=== PATIENT | male | born 2000 | race Caucasian/White ===

== ENCOUNTER 2020-08-31 17:31 | Outpatient (REF) | payer OTHER, SELFPAY | END 2020-08-31 17:32 | disposition home or self-care (01) | LOC: HO.LAB 17:31 | PROVIDERS: Visit Provider Internal Medicine | DX: Z20.822 Contact with and (suspected) exposure to COVID-19 (principal) | CPT/HCPCS: 36415; C9803; U0003 ==

== ENCOUNTER 2025-01-24 09:12 | Outpatient (REF) | payer OTHER, SELFPAY ==
--- OUTSIDE RECORDS SUMMARY | 2025-01-24 09:31 | XMS_ITS | Clinical Summary ---
Author Organization [facility]'s Address [address] [place] [id number] Phone Care Team Providers Care Service Delivery Management Consultant Name Role Phone Unavailable Primary Care Provider Unavailabl e Allergies No known active allergies Medications FLUoxetine (PROZAC) 20 MG capsule Take 1 capsule (20 mg total) by mouth every morning. 30 capsule 7 Active methylphenidate LA (RITALIN LA) 30 MG 24 hr capsuleIndications :Attention deficit hyperactivity disorder (ADHD), unspecified ADHD type Take 1 capsule (30 mg total) by mouth every morning. 30 capsule 7 Active melatonin tabletIndications: Attention deficit hyperactivity disorder (ADHD), unspecified ADHD type Take 1 tablet (3 mg total) by mouth nightly. 0 7 Active Active Problems Problem Noted Date Diagnosed Date ADHD (attention deficit hyperactivity disorder) 07/24/2018 BMI, pediatric > 99% for age 1207/24/2018 Immunizations Immunization Administration Dates Next Due DTaP 02/10/2006, 2,01/23/2001,11/21,2000 HPV Vaccine 9 Valent 10/31/2014,06/26/2014,04/29 Hep A, ped/adol 07/24/2018,07/17/2017 Hep B, ped/adol 01/23/2001,2000,2000 HiB 10/30/2001, 1,2000,09/21 IPV 02/10/2006, 2,2000,09/21 Influenza, injectable, quadr ivalent, preservative free 07/24/2018,07/17/2017,07/15/2016,06/15 Influenza, intranasal, quadrivalent 04/29/2014,0 04/15/2013,06/09/2009 MMR 02/10/2006,10/30/2001 Meningococcal Conj (Menactra) MCV4P 07/17/2017,0 02/13/2012 Pneumococcal Conjugate 01/23/2001,2000, Tdap 02/13/2012 Varicella 02/13/2012,12/25/2001 Family History Medical History Relation Name Comments ADD / ADHD Brother 1 day Bipolar disorder Brother 1 day No Known Problems Brother 2 annita Yoo's palsy Father Lebron Fibromyalgia Father Lebron Thyroid disease Maternal Grandmother Other Mother Elizabeth Arthritis Other Asthma Other Diabetes Other Hyperlipidemia Other Hypertension Other Lung cancer Other Skin cancer Other Relation Name Status Comments Brother 1 day Alive Brother 2 annita Alive Father Lebron Alive Maternal Grandmother Mother Elizabeth Alive IBS Other Social History Tobacco Use Types Packs/Day Years Used Date Smoking Tobacco: Never Smokeless Tobacco: Never Tobacco Cessation:Counseling Given: Yes Alcohol Use Standard Drinks/Week Comments No 0 (1 standard drink = 0.6 oz pur e alcohol) Hunger/Food Answer Date Recorded No 05/02/2020 Stable Housing Answer Date Recorded No 05/02/2020 Transportation Concerns Answer Date Rec orded No 05/02/2020 Hazards in Home Answer Date Recorded No 06/20/2020 Financing Utilities Answer Date Recorde d No 06/20/2020 Safety at Home Answer Date Recorded No 06/20/2020 Outside Support Answer Date Recorded No 06/20/2020 Understanding Health Concerns Answer Da te Recorded No 06/20/2020 Financing Health Concerns Answer Date R ecorded No 06/20/2020 Missing School or Work Answer Date Taqueria rded No 06/20/2020 Sex and Gender Information Value Date Recorded Sex Assigned at Not on file Legal Sex Male 12:22 PM EDT Gender Identity Not on file Sexual Orientation Not on file Last Filed Vital Signs Vital Sign Reading Time Taken Comments Blood Pressure 120/78 07/24/2018 3:03 PM EST Pulse 90 07/24/2018 3:03 PM EST Temperature 36.7 C (98 F) 07/24/2018 3:03 PM EST Respiratory Rate - - Oxygen Saturation - - Inhaled Oxygen Concentration - - Weight 83.2 kg (183 lb 8 oz) 07/24/2018 3:03 PM EST Height 160.7 cm (5' 3.25 ) 07/24/2018 3:03 PM ES T Body Mass Index 32.25 07/24/2018 3:03 PM EST Plan of Treatment Health Maintenance Due Date Last Done Comments DTaP,Tdap,and Td Vaccines (7 - Td or Tdap) 02/12/2022 02/13/2012, 02/10/2006, 12/25/2001, Additional history exists Influenza Vaccines (#1) 2024 07/24/20 18, 07/17/2017, 07/15/2016, Additional history exists COVID-19 Vaccine ( season) 2024 10/16/2020, 09/18/2020 Hepatitis B Vaccines Completed 01/23/2001, 2000, 2000 Pneumococcal Vaccine Aged Out 01/23/2001, 2000, 2000 No longer eligible based on patient's age to complete this topic HIB Vaccines Completed 10/30/2001, 01/05, 2000, Additional history exists IPV Vaccines Completed 02/10/2006, 12/06, 2000, Additional history exists MMR Vaccines Completed 02/10/2006, 10/30/2001 Varicella Vaccines Completed 02/13/2012, 12/25/2001 HPV Vaccines Completed 10/31/2014, 06/08, 04/29/2014 Meningococcal Vaccine Completed 07/17/2017, 012 Hepatitis A Vaccines Completed 07/24/2018, 07/17/20 17 Men B Vaccine Aged Out No longer elig ible based on patient's age to complete this topic
[2025-01-24 10:27] LABS: Glucose Fasting 96 mg/dL (60-99)
[2025-01-24 10:56] LABS: Estimated Average Glucose 105 mg/dL; Hemoglobin A1c % 5.3 % (<6.0)
== END 2025-01-24 09:13 | disposition home or self-care (01) ==
LOC: HO.10HDL 09:12
PROVIDERS: Visit Provider Family Medicine
DX: Z83.3 Family history of diabetes mellitus (principal); Z13.1 Encounter for screening for diabetes mellitus
CPT/HCPCS: 36415; 82947; 83036

== ENCOUNTER 2025-04-03 10:15 | Outpatient (AMB) | payer OTHER, SELFPAY ==
--- NOTE | 2025-04-03 10:51 | MHC.PC.OV ---
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 He reports having moments where his ears would randomly ring for approximately three seconds, during which he experiences almost complete loss of hearing. This occurrence is not associated with any rapid head movements or blockage, and he does not use ear-cleaning practices frequently. Medical History: - ADHD treatment during childhood Surgical History: - No previous surgeries Medications: - No active medications reported Family History: - Not significant Social: - Employed as a pharmacy director - Resides with parents - Light alcohol use, with recent increased frequency to 2-3 times per week consuming 2-3 beers per sitting - Infrequent use of cigars - Active lifestyle with gym workouts evidenced by hand calluses [facility] Medical History (Updated 04/03/25 @ 11:08 by Kevan Rider MD) Healthcare maintenance Social History Housing: House Patient Tobacco Use Status: Never used Tobacco e-Cigarette/Vaping Use: Never Used service: No Current occupational status: employed Current occupation: [employer] Questionnaire PHQ-9 Over the last 2 weeks, how often have you been bothered by any of the following problems? 1. Little interest or pleasure in doing things: not at all 2. Feeling down, depressed, or hopeless: not at all 3. Trouble falling or staying asleep, or sleeping too much: not at all 4. Feeling tired or having little energy: not at all 5. Poor appetite or overeating: not at all 6. Feeling bad about yourself - or that you are a failure or have let yourself or your family down: not at all 7. Trouble concentrating on things, such as reading the newspaper or watching television: not at all 8. Moving or speaking so slowly that other people could have noticed. Or the opposite - being so fidgety or restless that you have been moving around a lot more than usual: not at all 9. Thoughts that you would be better off or of hurting yourself in some way: not at all Total score: 0 Depression Screening Interpretation: Negative Depression Screening Done: Yes 31763 - PHQ-9 Billing: Yes Source: Developed by Drs. aAron Lopez, Lay Dominguez, Koko Dwyer and colleagues, with an educational balaji from [employer]. Thrive Questionnaire Date Thrive assessed: 04/03/25 I am a: Patient What is your living situation today?: I have a steady place to live Within the past 12 months, did the food you bought not last and you didn't have the money to get more?: Never true Within the past 12 months, did you worry whether your food would run out before you got money to buy more?: Never true Do you have trouble paying for medicines?: No Do you have trouble getting transportation to medical appointments?: No Do you have trouble paying your heating and electricity bill?: No Do you have trouble taking care of your child, family member or friend?: No Do you have trouble with day-to-day activities such as bathing, preparing meals, shopping, managing finances, etc.?: No Are you currently unemployed and looking for a job?: No Are you interested in more education?: No THRIVE Score: 0 AUDIT C Alcohol Use Questionnaire (AUDIT-C) 1. How often do you have a drink containing alcohol?: 2-3 times a week 2. How many drinks containing alcohol do you have on a typical day when you are drinking?: 3 or 4 3. How often do you have six or more drinks on one occasion?: Never Total Score: 4 Score Reviewed/Action Taken: Yes BRANDEN-7 AMB Questionnaire BRANDEN-7 Date BRANDEN - 7 assessed: 04/03/25 Feeling nervous, anxious, or on edge: 0 = Not at all Not being able to stop or control worryin = Not at all Worrying too much about different things: 0 = Not at all Trouble relaxin = Not at all Being so restless that it is hard to sit still: 0 = Not at all Becoming easily annoyed or irritable: 0 = Not at all Feeling afraid as if something awful might happen: 0 = Not at all Total BRANDEN-7 score (0-4 normal; 5-9 mild; 10-14 moderate; 15-21 severe): 0 Source: Developed by Drs. Aaron Lopez, Lay Dominguez, Koko Dwyer and colleagues, with an educational balaji from [employer]. BRANDEN-7 Assessment Billing BRANDEN-7 Assessment Tool: BRANDEN-7 Assessment 44628 Review of Systems Const Details: - General: Denies fatigue, weight loss, or fever - Skin: Denies rashes or other skin issues - ENT: Reports unilateral tinnitus lasting three seconds - Respiratory: Denies cough, shortness of breath - Cardiovascular: Denies chest pain - Gastrointestinal: Denies nausea, vomiting, diarrhea, or abdominal pain - Musculoskeletal: Denies joint or muscle pain - Neurological: Denies headaches, dizziness, or vision changes - Psychological: Denies anxiety, depression, or suicidal ideation All systems reviewed & are unremarkable except as noted in HPI and below Physical exam (Primary Care) Depression Screening Interpretation: Negative Const Other: General: Alert and oriented, Well nourished, No acute distress. Eye: Pupils are equal, round and reactive to light, Intact accommodation, Extraocular movements are intact, Normal conjunctiva, Vision changes noted. HENT: Normocephalic, Atraumatic, Tympanic membranes are clear, Normal hearing, Oral mucosa is moist, No pharyngeal erythema, Ear canals patent, Occasional ringing in ears noted. Respiratory: Lungs CTA bilaterally, No wheeze, Respirations are non-labored. Cardiovascular: Regular rate, Regular rhythm, S1 auscultated, S2 auscultated, No murmur, Good pulses equal in all extremities, Normal peripheral perfusion, No edema. Gastrointestinal: Soft, Non-tender, Non-distended, Normal bowel sounds, No organomegaly. Musculoskeletal: Normal range of motion, Normal strength, No tenderness, No swelling, No deformity, Normal gait. Integumentary: Warm, Dry, [place], Intact, Calluses noted on hands. Neurologic: Alert, Oriented, Normal sensory, Normal motor function, No focal defects, Cranial Nerves II-XII are grossly intact, Normal deep tendon reflexes. Psychiatric: Cooperative, Appropriate mood & affect, Normal judgment. Coding Level of Care Code New Pt Level 4 (98835) Diagnoses Healthcare maintenance Z00.00 Additional Codes BRANDEN-7 Assessment Billing - BRANDEN-7 Assessment Tool: BRANDEN-7 Assessment 51804 ([id number]) PHQ-9 - 50852 - PHQ-9 Billing: Yes ([id number]) Assessment & Plan Assessment & Plan (1) Healthcare maintenance: Comment: Healthy gentleman with past medical history of ADHD however not on any current medications. We will obtain baseline labs and have patient return p.r.n. Code(s): Z.00 - Encounter for general adult medical examination without abnormal findings Category: Medical Plan: - Obtain CBC, CMP, Hep Panel, Lipid Panel, TSH Orders: Orders Complete Blood Count Auto Diff Today Z00.00 - Encounter for general adult medical examination without abnormal findings Comprehensive Met. Panel Today Z00.00 - Encounter for general adult medical examination without abnormal findings Hepatitis A,B,C Profile Today Z00.00 - Encounter for general adult medical examination without abnormal findings Lipid Panel Today Z00.00 - Encounter for general adult medical examination without abnormal findings Syphilis Screen Today Z00.00 - Encounter for general adult medical examination without abnormal findings Hemoglobin A1c Today Z00.00 - Encounter for general adult medical examination without abnormal findings HIV Ab/Ag Today Z00.00 - Encounter for general adult medical examination without abnormal findings Vitamin D 25-OH Total Today Z00.00 - Encounter for general adult medical examination without abnormal findings TSH reflex Free T4 Today Z00.00 - Encounter for general adult medical examination without abnormal findings
[2025-04-03 10:55] VITALS: BP 110/78; PULSE 67; RESP 16; TEMP 36.9; O2SAT 97; BMI 33.6
--- OUTSIDE RECORDS SUMMARY | 2025-04-03 11:31 | XMS_ITS | Clinical Summary ---
Author Organization 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
== END 2025-04-03 11:55 | disposition home or self-care (01) ==
LOC: HO.HMCHD 10:15
PROVIDERS: PCP Student in an Organized Health Care Education/Training Program; Visit Provider Student in an Organized Health Care Education/Training Program
DX: Z00.00 Encounter for general adult medical examination without abnormal findings (principal)

== ENCOUNTER → 2025-04-03 10:15 | Outpatient (BNVA) | payer OTHER, SELFPAY | PROVIDERS: PCP Internal Medicine; Visit Provider Student in an Organized Health Care Education/Training Program | DX: Z00.00 Encounter for general adult medical examination without abnormal findings (principal); Z13.31 Encounter for screening for depression; Z13.39 Encounter for screening examination for other mental health and behavioral disorders | CPT/HCPCS: 96127 ==